=== PATIENT | male | born 1955 | race African-American/Black ===

== ENCOUNTER 2023-02-02 15:27 | Emergency (ER) | payer OTHER ==
[~2023-02-02] VITALS: Ht 175.3 cm; Wt 61.4 kg
[2023-02-02 15:31] VITALS: BP 122/77; TEMP 98.5; O2SAT 99
[2023-02-02 15:32] VITALS: PULSE 75; RESP 19
[2023-02-02 17:07] LABS: BASOPHILS % 0.8 % (0.0-2.0); EOSINOPHILS % 1.8 % (0.0-5.0); HEMATOCRIT. 36.9 % (42.0-52.0); HEMOGLOBIN. 12.4 g/dL (14.0-18.0); LYMPHOCYTES % 26.4 % (20.0-50.0); MEAN CORPUSCULAR HEMOGLOBIN 33.1 pg (28.0-32.0); MEAN CORPUSCULAR HGB CONC 33.7 g/dL (31.0-37.0); MEAN CORPUSCULAR VOLUME 98.5 fL (80.0-94.0); MEAN PLATELET VOLUME 8.3 fl (7.4-10.4); MONOCYTES % 11.5 % (2.0-8.0); NEUTROPHILS % 59.5 % (40.0-76.0); PLATELET 184 x1000/uL (130-400); RED BLOOD CELL COUNT 3.75 mill/uL (4.7-6.1); RED CELL DISTRIBUTION WIDTH 13.8 % (11.6-14.6)
[2023-02-02 17:13] LABS: CHLORIDE 105 mEq/L (98-107); INDEX HEMOLYSI 1 (1-3); INDEX ICTERIC 1 (1-4); INDEX LIPEMIC 1 (1-3); POTASSIUM 4.1 mEq/L (3.5-5.1); SODIUM 136 mEq/L (136-145)
[2023-02-02 17:21] LABS: ALANINE AMINOTRANSFERASE 18 IU/L (13-61); ALBUMIN 3.4 g/dL (3.4-5.0); ASPARTATE AMINOTRANSFERASE 25 IU/L (15-37); BILIRUBIN TOTAL 0.9 mg/dL (0.1-1.0); CALCIUM 8.5 mg/dL (8.5-10.1); CARBON DIOXIDE 28 mEq/L (21-32); CREATININE 0.9 mg/dL (0.6-1.3); GLUCOSE 101 mg/dL (70-105); PROTEIN TOTAL 6.8 g/dL (6.0-8.3); UREA NITROGEN BLOOD 13 mg/dL (7-21)
[2023-02-02] MEDS ORDERED: IOHEXOL-300 100 ML BOTTLE ONE (18:55)
[2023-02-02] MEDS ORDERED: NAPR-681 PO (19:20)
== END 2023-02-02 20:05 | disposition home or self-care (01) ==
LOC: ER 15:27
DX: S30.1XXA Contusion of abdominal wall, initial encounter (principal); S00.01XA Abrasion of scalp, initial encounter; S69.92XA Unspecified injury of left wrist, hand and finger(s), initial encounter; M54.2 Cervicalgia; X58.XXXA Exposure to other specified factors, initial encounter; Y93.89 Activity, other specified; Y92.89 Other specified places as the place of occurrence of the external cause; Y99.8 Other external cause status
CPT/HCPCS: 80053; 85025; 36415; 73130; 70450; 71260; 72125; 74177; 99284; Q9967; Z7610 ×2